=== PATIENT | male | born 1955 | race African-American/Black ===

== ENCOUNTER 2017-06-05 15:47 | Emergency (ER) | payer OTHER ==
[~2017-06-05] VITALS: Ht 182.9 cm; Wt 127.0 kg
[2017-06-05 16:05] VITALS: BP 168/76
[2017-06-05] MEDS ORDERED: BACLOFEN 10 MG TAB PO ONE (20:45)
[2017-06-05] MEDS ORDERED: IBUPROFEN 600 MG TAB PO ONE (20:45)
== END 2017-06-05 22:22 | disposition home or self-care (01) ==
LOC: ER 15:47
DX: S16.1XXA Strain of muscle, fascia and tendon at neck level, initial encounter (principal); M79.1 Myalgia; J44.9 Chronic obstructive pulmonary disease, unspecified; E11.9 Type 2 diabetes mellitus without complications; I10 Essential (primary) hypertension; V49.49XA Driver injured in collision with other motor vehicles in traffic accident, initial encounter; Y93.89 Activity, other specified; Y99.8 Other external cause status; Y92.410 Unspecified street and highway as the place of occurrence of the external cause
CPT/HCPCS: 72125